=== PATIENT | female | born 1985 | race African-American/Black ===

== ENCOUNTER 2019-07-20 10:09 | Day surgery (SDC) | payer OTHER ==
[2019-07-17 16:00] VITALS: BMI 33.6
--- NOTE | 2019-07-20 11:07 | HP ---
History & Physical Update - History History: No Change - Physical Physical: No Change - Assessment Assessment: No Change - Plan Plan: No Change
--- NOTE | 2019-07-20 11:09 | OP ---
Operative Note - Note: Operative Date: 07/20/19 Pre-Operative Diagnosis: L renal calculus Operation: L ureteroscopic laser lithotripsy and JJ stent change Findings: L renal calculus Post-Operative Diagnosis: Same as Pre-op Surgeon: Ok Arevalo Anesthesiologist/MOBILE MARKETING MANAGER: Linda Davis Anesthesia: General Specimens Removed: L renal calculus, L JJ stent Estimated Blood Loss (mls): 0 Drains & Tubes with Location: 6 fr 24 cm L JJ stent Operative Report Dictated: Yes
[2019-07-20] MEDS ORDERED: MIDAZOLAM HCL 2 MG/2 ML SINGLE DOSE VIAL ONE (11:32)
[2019-07-20] MEDS ORDERED: PROPOFOL 20 ML ONE ×2 (11:32)
[2019-07-20] MEDS ORDERED: ceFAZolin SODIUM 1 GM VIAL ONE (11:32)
[2019-07-20] MEDS ORDERED: LIDOCAINE HCL/PF 2% SDV 5ML VIAL ONE (11:32)
[2019-07-20] MEDS ORDERED: ceFAZolin SODIUM 1 GM VIAL IVPB ONE (11:55)
[2019-07-20] MEDS ORDERED: DEXAMETHASONE SOD PHOSPHATE 4 MG/1 ML VIAL ONE (12:09)
[2019-07-20] MEDS ORDERED: oxyCODONE HCL 5 MG TABLET PO PRN (12:50)
[2019-07-20] MEDS ORDERED: ONDANSETRON 4 MG/2 ML VIAL IVPUSH PRN (12:50)
[2019-07-20] MEDS ORDERED: ACETAMINOPHEN 500 MG TABLET (FP) PO PRN (12:50)
[2019-07-20] MEDS ORDERED: LACTATED RINGERS SOLUTION 1,000 ML IV SCH (13:00)
[2019-07-20] MEDS ORDERED: ACETAMINOPHEN INJECTION 100 ML IVPB ONE (13:01)
--- NOTE | 2019-07-20 13:22 | OP ---
DATE OF OPERATION: 07/20/2019 PREOPERATIVE DIAGNOSES: Left renal calculus. POSTOPERATIVE DIAGNOSIS: Left renal calculus. PROCEDURE: Cyst, left ureteroscopic laser lithotripsy, and left double J stent exchange. SURGEON: Ok Arevalo MD BIOMEDICAL ENGINEERING TECHNICIAN: None. ANESTHESIA: General via laryngeal mask. ANESTHESIOLOGIST: Linda Davis MD SPECIMENS: Left double J stent and left renal calculus. CULTURES: None. DRAINS: A 6-Kosovan 24-cm left double J stent. ESTIMATED BLOOD LOSS: None. COMPLICATIONS: None. DESCRIPTION OF PROCEDURE: Patient was brought into the operating room. Placed on the operating room table in supine position. After administration of general anesthesia via laryngeal mask, intravenous antibiotics were administered. Sequential compression devices were placed. Patient was placed in the dorsal lithotomy position. The vagina and perineum were prepped and draped in the usual sterile manner. A 22-Kosovan cystoscope with obturator in place was inserted into the bladder. The obturator was removed. Urine was evacuated. The 30-degree telescope was inserted. Cystoscopy was performed. This demonstrated no tumors, stones, or inflammation. Both ureteral orifices were in their usual location with left double J stent in its usual position. Left double J stent was grasped at its tip, brought to the ureteral meatus, cannulated with a 0.38 guidewire, which was advanced to the level of the left renal pelvis under fluoroscopic guidance. Double J stent was removed, sent to Pathology as specimen. Now the ureteral access sheath was inserted over the guidewire under fluoroscopic guidance to the level of the left ureteropelvic junction. Retrograde pyelograms done. Demonstrated left lower pole radiolucent renal calculus. The obturator of the ureteral access sheath was removed, and the flexible ureteroscope was inserted up to the left renal pelvis. Now a pyeloscopy was performed. Stone was visualized in the left lower calyx, and using a 200-micron laser fiber, laser lithotripsy was done. The stone was removed. Sent to Pathology as specimen. The ureteroscope was removed. Guidewire was replaced. Ureteral access sheath was removed. Dual-lumen catheter was inserted. Retrograde pyelogram was done. Demonstrated no extravasation. No evidence of additional filling defects or calculi. Now a 6-Kosovan 24-cm left double J stent was inserted over the guidewire under fluoroscopic guidance leaving 1 coil in the renal pelvis and 1 coil in the bladder. Now the cystoscope was introduced, confirmed the stent was in proper position. The bladder was emptied, cystoscope removed. The stent was secured to the thigh with a suture and a Tegaderm. She tolerated the procedure well. Transferred to the recovery room in stable condition. She will be followed in the office Tuesday for stent removal. Keerthi [id number]
[2019-07-20 15:28] VITALS: BP 139/90; PULSE 83
[2019-07-20 16:27] VITALS: TEMP 97.8
--- NOTE | 2019-07-23 12:14 | PATH ---
Surgical Pathology Report Patient Name: MABEL LICONA Med. Rec. #: [id number] /Age/Gender: 1985 (Age: 34) / F Account: [id number] Location: [facility] SURG[facility] Taken: 07/20/2019 Received: 07/20/2019 Reported: 07/23/2019 Physicians: Ok Arevalo M.D. Specimen(s) Received A: LEFT URETERAL STENT B: LEFT URETERAL STONE Clinical History Left kidney stone Final Diagnosis A. URETERAL STENT, LEFT, EXCHANGE: URETERAL STENT, MACROSCOPIC DIAGNOSIS. B. URETERAL STONE, LEFT, LASER LITHOTRIPSY: URETEROLITHIASIS. MACROSCOPIC DIAGNOSIS. Electronically Signed Leyn Cartagena M.D. Gross Description A. Received fresh labeled "left ureteral stent," is a 37 cm in length blue, coiled portion of tubing, consistent with a ureteral stent. No soft tissue is present. No sections are submitted, gross only. B. Received fresh labeled "left ureteral stone," is a 0.3 cm greatest dimension sheriff, irregular calculus which is sent for chemical analysis. /07/20/2019 [facility]/07/20/2019
== END 2019-07-20 16:29 | disposition home or self-care (01) ==
LOC: JASU-SURG 10:09
PROVIDERS: ATTEND Urology
PROC: 0T778DZ Dilation of Left Ureter with Intraluminal Device, Via Natural or Artificial Opening Endoscopic (ICD-10-PCS; 2019-07-20)
PROC: 0TF78ZZ Fragmentation in Left Ureter, Via Natural or Artificial Opening Endoscopic (ICD-10-PCS; principal; 2019-07-20 12:00)
DX: N20.0 Calculus of kidney (principal)
CPT/HCPCS: 36415; 76000-TC-FY; 82360; 84703; 88300-TC; 94760; J0131